=== PATIENT | female | born 1975 | race Caucasian/White ===

== ENCOUNTER → 2017-10-30 09:28 | Outpatient (CLI) | payer OTHER, SELFPAY ==
[2017-10-30 11:27] LABS: Vitamin D,25 Hydroxy 9.8 ng/mL (19.95-100.01)
[2017-10-30 18:23] LABS: AST(SGOT) 12 U/L (15-37); Alanine Aminotransfer ALT/SGPT 19 U/L (13-56); Albumin, Serum 3.8 g/dL (3.2-5.0); Alkaline Phosphatase 34 U/L (45-117); Anion Gap 8 (5-15); BUN 16 mg/dL (7-18); BUN/Creat Ratio 18.4 RATIO (10-20); Calcium,Total 8.6 mg/dL (8.5-10.1); Chloride 106 mmol/L (98-107); Creatinine, Serum 0.87 mg/dL (0.55-1.02); EST Glomerular Filtration Rate 76 mL/min (>60); Est Glom Filt Rate - Afr Amer 92 mL/min (>60); Globulin 3.7 g/dL (2.2-4.2); Glucose 94 mg/dL (74-106); Phosphorus 3.2 mg/dL (2.5-4.9); Potassium 3.7 mmol/L (3.5-5.1); Protein, Total 7.5 g/dL (6.4-8.2); Sodium Level 141 mmol/L (136-145)
[2017-10-30 18:30] LABS: PTHIN 58.3 pg/mL (18.4-80.1)
[2017-11-03 08:59] LABS: t-Transglutaminase IgA <2 U/mL (0-3)
[2017-11-03 17:15] LABS: HPV Reflexed? NOT INDICATED
== END ==
PROVIDERS: Visit Provider Obstetrics & Gynecology
DX: E55.9 Vitamin D deficiency, unspecified (principal); Z12.4 Encounter for screening for malignant neoplasm of cervix
CPT/HCPCS: 80053; 82306; 83516; 83970; 84100; 88175; G0145

== ENCOUNTER → 2017-12-21 08:12 | Outpatient (CLI) | payer OTHER, SELFPAY ==
--- NOTE | 2017-12-21 08:13 | HPBI_ITS ---
MAMMOGRAPHY - BILATERAL SCREENING 3-D VANESA SYNTHESIS REASON FOR EXAM: Female, 42 years old. Bilateral Screening 3-D tomosynthesis PERTINENT HISTORY: Aunt with breast cancer.. TECHNIQUE: 2-D mammograms and 3-D Vanesa synthesis of the breast (s) were performed. CAD was performed. COMPARISON: 03/06/2016 FINDINGS: The breast composition is heterogeneously dense that can obscure small breast masses. Scattered benign calcifications are seen. No dense spiculated masses or suspicious microcalcifications are identified. No architectural distortion is identified. There is no skin thickening or retraction. There has been no significant change since the prior study. HPBI/SCREENING MAMM (CAD), BILAT IMPRESSION: No mammographic signs of malignancy. Routine yearly mammograms recommended. ASSESSMENT CATEGORY: BIRADS Category 2: Benign. A letter regarding these results will be sent to the patient by the facility within 30 days. FOLLOW UP RECOMMENDATION: Yearly follow up mammogram recommended. (A) Approximately 10% of breast cancers are not detected by mammography. A normal mammogram should not delay biopsy of a clinically suspicious abnormality. Electronically Signed: Malik Singh MD at 10:01 EDT , Service support ,
== END ==
PROVIDERS: Family Provider Family Medicine; PCP Family Medicine; Visit Provider Obstetrics & Gynecology
DX: Z12.31 Encounter for screening mammogram for malignant neoplasm of breast (principal)
CPT/HCPCS: 77063; 77067

== ENCOUNTER → 2018-11-12 16:08 | Outpatient (CLI) | payer OTHER, SELFPAY ==
[2017-10-05 17:50] VITALS: BMI 24.1
[2018-11-12 20:23] LABS: Chlamydia Trachomatis by PCR Negative (Negative); Neisserai gonorrhoeae by PCR Negative (Negative); Probe Check PASS; Sample Adequacy Control PASS; Specimen Processing Control PASS
== END ==
PROVIDERS: Visit Provider Obstetrics & Gynecology
DX: Z11.3 Encounter for screening for infections with a predominantly sexual mode of transmission (principal)
CPT/HCPCS: 87491; 87591

== ENCOUNTER → 2018-12-17 13:50 | Outpatient (CLI) | payer OTHER, SELFPAY ==
[2018-12-17 15:42] LABS: Hematocrit 40.8 % (37-47); Hemoglobin 13.4 g/dl (12.0-15.0); Mean Corp Hgb Conc 32.8 g/gl (32-36); Mean Corpuscular Hgb 29.6 pg (27.0-32.0); Mean Corpuscular Volume 90.1 fL (81-99); Mean Platelet Vol. 10.7 fl (6.2-12.0); Platelet Count 305 K/mm3 (150-450); RBC Distribution Width CV 13.2 % (11.6-14.6); RBC Distribution Width SD 43.4 fl (35.1-43.9); Red Blood Count 4.53 M/mm3 (4.2-5.4); White Blood Count 8.9 K/mm3 (4.4-11.0)
[2018-12-17 15:50] LABS: Scan Indicated on CBC? Y/N NO
[2018-12-17 15:55] LABS: Thyroid Stim Hormone (TSH) 0.89 uIU/mL (0.358-3.74)
[2018-12-17 15:57] LABS: Vitamin D,25 Hydroxy 30.5 ng/mL (29.95-100.01)
== END ==
PROVIDERS: Visit Provider Obstetrics & Gynecology
DX: R53.83 Other fatigue (principal)
CPT/HCPCS: 82306; 84443; 85027

== ENCOUNTER → 2018-12-28 15:06 | Outpatient (CLI) | payer OTHER, SELFPAY ==
[2017-10-05 17:50] VITALS: BMI 24.1
== END ==
PROVIDERS: Visit Provider Family Medicine
DX: Z20.818 Contact with and (suspected) exposure to other bacterial communicable diseases (principal)
CPT/HCPCS: 87070; 87880

== ENCOUNTER → 2019-02-08 | Outpatient (CLI) | payer OTHER, SELFPAY ==
--- NOTE | 2019-02-08 12:16 | US_ITS ---
STUDY: THYROID ULTRASOUND REASON FOR EXAM: Female, 43 years old. Thyromegaly. Palpable cervical wall. TECHNIQUE: Ultrasound evaluation of the thyroid was performed with real-time and static celis-scale imaging. COMPARISON: None. FINDINGS: RIGHT LOBE: The right lobe of the thyroid gland measures 4.7 cm x 1.5 cm x 1.4 cm. There is a homogeneous echotexture. There are no demonstrated solid, cystic or complex lesions. LEFT LOBE: The left lobe of the thyroid gland measures 4.5 cm x 1.5 cm x 1.3 cm. There is a homogeneous echotexture. There are no demonstrated solid, cystic or complex lesions. ISTHMUS: The isthmus measures 3.0 mm. The palpable abnormality along the medial aspect of the left side of the neck corresponds to a 2 cm x 1.0 cm x 0.6 cm well-defined solid nodule. This may represent a small lymph node. US/Thyroid IMPRESSION: Normal ultrasound examination of the thyroid. Findings suggestive of a 2 cm x 1 cm x 0.6 cm lymph node corresponding to the palpable abnormality along the medial aspect of the left side of the neck. Electronically Signed: Cade Streeter, at 8:57 EDT , Service support ,
== END | disposition home or self-care (01) ==
LOC: US 12:13
PROVIDERS: Family Provider Family Medicine; PCP Family Medicine; Referring Provider Family Medicine; Visit Provider Family Medicine
DX: E04.9 Nontoxic goiter, unspecified (principal)
CPT/HCPCS: 76536

== ENCOUNTER → 2019-05-10 | Outpatient (CLI) | payer OTHER, SELFPAY ==
--- NOTE | 2019-05-10 17:21 | BI_ITS ---
MAMMOGRAPHY - BILATERAL SCREENING REASON FOR EXAM: Female, 43 years old. Routine annual screening examination. PERTINENT HISTORY: Aunt with breast cancer. TECHNIQUE: Digital bilateral breast vanesa (3D mammographic acquisition) in the CC and MLO projections. 2-D mediolateral oblique (MLO) and craniocaudad (CC) views of both breasts were obtained. CAD: Full Field Digital Mammography with Computer Added Detection was performed. COMPARISON: Comparison is made with prior study dated December 21, 2017 and March 06, 2016. FINDINGS: Breast Composition: The breasts are heterogeneously dense, which may obscure small masses. There are no dominant masses or suspicious calcifications. No other significant abnormalities are identified. There has been no significant change since the prior study. BI/SCREEN MAMM (CAD) W/VANESA BILAT IMPRESSION: Stable bilateral screening mammogram. Yearly follow-up mammogram recommended. (A) ASSESSMENT CATEGORY: BIRADS Category 1: Negative. A letter regarding these results will be sent to the patient by the facility within 30 days. Approximately 10% of breast cancers are not detected by mammography. A normal mammogram should not delay biopsy of a clinically suspicious abnormality. [id number] Electronically Signed: Cade Streeter, at 8:59 EDT , Service support ,
== END | disposition home or self-care (01) ==
LOC: OPBI 05-11 07:24
PROVIDERS: Family Provider Family Medicine; PCP Family Medicine; Referring Provider Obstetrics & Gynecology; Visit Provider Obstetrics & Gynecology
DX: Z12.31 Encounter for screening mammogram for malignant neoplasm of breast (principal)
CPT/HCPCS: 77063; 77067

== ENCOUNTER → 2019-05-31 | Outpatient (CLI) | payer OTHER, SELFPAY ==
[2017-10-05 17:50] VITALS: BMI 24.1
== END | disposition home or self-care (01) ==
PROVIDERS: Family Provider Family Medicine; PCP Family Medicine; Referring Provider Obstetrics & Gynecology; Visit Provider Obstetrics & Gynecology
DX: Z12.4 Encounter for screening for malignant neoplasm of cervix (principal)

== ENCOUNTER → 2019-06-21 15:41 | Outpatient (CLI) | payer OTHER, SELFPAY ==
[2017-10-05 17:50] VITALS: BMI 24.1
[2019-06-21 17:22] LABS: Hematocrit 42.1 % (37-47); Hemoglobin 13.7 g/dL (12.0-15.0); Mean Corp Hgb Conc 32.5 g/dL (32-36); Mean Corpuscular Hgb 29.5 pg (27.0-32.0); Mean Corpuscular Volume 90.5 fL (81-99); Mean Platelet Vol. 11.7 fl (6.2-12.0); Platelet Count 291 K/mm3 (150-450); RBC Distribution Width CV 12.8 % (11.6-14.6); RBC Distribution Width SD 42.5 fl (35.1-43.9); Red Blood Count 4.65 M/mm3 (4.2-5.4); White Blood Count 9.3 K/mm3 (4.4-11.0)
[2019-06-21 17:45] LABS: Free T3 2.6 pg/mL (2.18-3.98); Thyroid Stim Hormone (TSH) 0.95 uIU/mL (0.358-3.74)
== END ==
PROVIDERS: Visit Provider Obstetrics & Gynecology
DX: N93.9 Abnormal uterine and vaginal bleeding, unspecified (principal)
CPT/HCPCS: 36415; 84443; 84481; 85027

== ENCOUNTER 2019-09-22 11:59 | Day surgery (SDC) | payer OTHER, SELFPAY ==
[2019-06-30 09:20] VITALS: BMI 24.1
[2019-09-22 12:31] VITALS: PULSE 88; RESP 15; TEMP 37; O2SAT 100; BMI 25.4
[2019-09-22 12:40] LABS: Internal QC Validated? YES +Cl - CLEAR BKGD; Pregnancy, Urine Negative Negative
[2019-09-22] MEDS: Lactated Ringers 1,000 ML 75 ML IV (12:50)
--- NOTE | 2019-09-22 14:02 | PCM.HP.STD ---
Problem List (1) Subcutaneous mass Status: Acute History of Present Illness Date of Admission: 09/22/19 The patient is a 43 year old F who for 7 months have had a subcutaneous mass left anterior neck. On thyroid ultrasound it measures 2 x 1 x 0.6 cm.. There is been no drainage. No redness. She presents now for planned complete excision. She otherwise remains healthy. Past Medical History Medical History: Medical History (Last Updated 06/30/19 @ 09:09 by Noy Mak) Subcutaneous mass (Acute) R22.9 Swelling of gland (Acute) R59.9 Sinusitis (Acute) J32.9 Allergies iodine Allergy (Verified 09/22/19 12:26) Itching nitrofurantoin [From Macrobid] Allergy (Verified 09/22/19 12:26) Other nitrofurantoin macrocrystalline [From Macrobid] Allergy (Verified 09/22/19 12:26) Other shrimp Allergy (Verified 09/22/19 12:26) Unknown cashews Allergy (Uncoded 09/22/19 12:26) Unknown Home Medications: Ambulatory Orders Medication Instructions Recorded Fluticasone 0.05% [Flonase Nasal 1 spray NASAL DAILY 02/07/15 [place]] osbnhdmtry-qwtdsqvdkqwjk-uhaaorbs 1 cap PO Q4H PRN cap 06/30/19 50 mg-300 mg-40 mg capsule valacyclovir 500 mg tablet 500 mg PO DAILY PRN 06/30/19 Cetirizine HCl [Zyrtec] 10 mg PO DAILY 09/15/19 Surgical History: Surgical History (Last Updated 06/30/19 @ 09:10 by Noy Mak) history bilateral myringotomy with tubes history removal wisdom teeth Smoking Status: Former smoker Review of Systems Constitutional: Denies: Anorexia HEENT: Denies: Difficulty Swallowing Cardiovascular: Denies: Chest Pain Respiratory: Denies: Cough VTE Information - Inpt Only VTE Present on Admission: No - Physical Exam Vitals/I&O's: Vital Signs Temp Pulse Resp Pulse Ox 98.6 F 88 15 100 09/22/19 12:31 09/22/19 12:31 09/22/19 12:31 09/22/19 12:31 Oxygen Delivery Method Room Air Weight: 139 lb 5.314 oz Body Mass Index (BMI) 25.4 General: Alert, Oriented x3, Cooperative, No apparent distress HEENT: - - 2 cm nondescript subcutaneous rubbery mass left superior anterior neck Oral: Moist Mucosa Lungs: Clear to auscultation, Normal air movement Cardiovascular: Regular rate, Regular Rhythm Abdomen: Soft, Non Tender Extremities: No Calf Tenderness Laboratory Results 09/22/19 12:20: Urine Test Negative Current Medications Lactated Ringer's () 1,000 mls @ 75 mls/hr IV .[id number] TRACY Last Admin: 09/22/19 12:50 Dose: 75 mls/hr Documented by: Assessment/Plan All Active Problems (Last Updated 06/30/19 @ 09:09 by Noy Mak) Subcutaneous mass (Acute) Swelling of gland (Acute) Swelling of gland (Acute) Sinusitis (Acute) Left anterior neck subcutaneous nodule. Ultrasound suggested possible lymph node but on clinical exam seems more suspicious for a lipoma. I thought initially we would need to perform an ultrasound-guided wire localization. On review it is very vague on ultrasound. It is palpable. I believe that a direct incision over top with dissection will be appropriate. She is aware of the technique, benefit, risks, alternatives. She would like to have complete removal feasible. Ron Smyth M.D., F.A.C.S.
[2019-09-22 14:11] LABS: Bedside Glucose 95 mg/dL (70-110)
--- NOTE | 2019-09-22 14:25 | PCM.DC.GS ---
Discharge Diet: Light diet - advance as tolerated - if you have questions about your diet instructions, please talk to you doctor. Discharge Activity: May Not Drive - for 1 week or while taking narcotic pain medicine. May shower in (days): 1 Lifting Restrictions: 10 pounds Call your doctor if your incision/area has: Continuous Slow Oozing, Sudden Increased Bleeding, Increased Pain/ Swelling, Increased Redness, Foul Smelling Discharge Call your doctor if you observe: Fever of 101 or Higher Suture Line Care: Avoid Pulling/Pushing, Avoid Pinching/Bending Additional Dressing/Incision Instructions:: Change or remove dressing in 3 days. Leave steri-strips in place for 1 week. Allergies/Adverse Reactions: Allergies iodine Allergy (Verified 09/22/19 12:26) Itching nitrofurantoin [From Macrobid] Allergy (Verified 09/22/19 12:26) Other nitrofurantoin macrocrystalline [From Macrobid] Allergy (Verified 09/22/19 12:26) Other shrimp Allergy (Verified 09/22/19 12:26) Unknown cashews Allergy (Uncoded 09/22/19 12:26) Unknown Medications to take at Discharge Fluticasone 0.05% [Flonase Nasal [place]] 1 spray NASAL DAILY 02/07/15 xfncjhzbcm-wbkdplplpiqda-ovuuaqiz 50 mg-300 mg-40 mg capsule 1 cap PO Q4H PRN cap 06/30/19 valacyclovir 500 mg tablet 500 mg PO DAILY PRN 06/30/19 Cetirizine HCl [Zyrtec] 10 mg PO DAILY 09/15/19 Primary Care Physician: Lakeisha Carter MD [Primary Care Provider] - Test Results: Test results from this visit will be discussed in further detail at your follow-up appointment, if applicable. Please Follow Up With: Ron Smyth MD - [phone] When: Call to make an appointment to be seen in about 10 days.
--- NOTE | 2019-09-22 14:30 | LIP_PTH ---
PATIENT: TRACY CONTI LOC: [facility] [place] U#:[id number] AGE/SX: 43/F ROOM: RE09/22/[address]: Dr. Ron Smyth MD : 1975 BED: DIS: 09/22/2019 SPEC #: [id number] RECD: 09/22/19 15:38 STATUS: ASHKAN MARGIE #: [id number] JUAN M: 09/22/19 14:[address]: Ron Smyth DEPT: SURGICAL PATHOLOGY RECD BY: Denise Flynn ENTERED: 09/23/19 09:18 SP TYPE: LIPOMA OTHR DR: Dr. Lakeisha Carter MD Tissues: Soft tissues, NOS Procedures: Surgery Specimen Level III HEADER OPERATION: Neck mass with excisional biopsy PRE-OP DIAGNOSIS: Subfascial lipoma TISSUE SUBMITTED: Subfascial lipoma MICROSCOPIC DIAGNOSIS Soft tissue of neck, excision: Mature adipose tissue consistent with lipoma. AM:felicia 09/26/19 MICROSCOPIC DESCRIPTION Slides are reviewed. GROSS DESCRIPTION Received in fixative is one container labeled with the patient's name and designated subfascial lipoma. The specimen consists of an irregular fragment of yellow fatty tissue measuring 2.5 x 1.5 x 1 cm. The cut surface is yellow-salgado and free of areas of hemorrhage, cyst formation or necrosis. The specimen is bisected and totally submitted in one cassette. / AM:felicia 09/23/19 TC:1 CPT: 00954
[2019-09-22] MEDS: Bupivacaine Mpf 0.5% 30 ML VIAL (15:06)
--- NOTE | 2019-09-22 15:07 | PCM.OPRPT ---
Problem List (1) Subcutaneous mass Status: Acute Report of Operation Date of Procedure: 09/22/19 Pre-Operative Diagnosis: Subcutaneous mass left superior anterior neck Post-Operative Diagnosis: Subfascial mass left superior anterior neck Surgery/Procedure Performed:: Excision of subfascial mass of left superior anterior neck Description of Surgical Findings:: Timeout and informed consent was obtained. 43-year-old female was taken to the operating room underwent general anesthesia the left anterior superior neck was sterilely prepped and draped. A transverse incision was made directly over the palpable mass sharp dissection was carried down through the platysma and the fibrofatty mass was encountered. It was carefully and tediously circumferentially dissected free. Although there was not a clean capsule I felt that I got complete excision. Hemostasis was obtained with electrocautery and interrupted 5-0 chromic. The subcutaneous and platysmal layer was approximated with interrupted 5-0 chromic. Subdermal edges of additionally approximated with interrupted 5-0 chromic. Skin edges approximated with simple sutures of 6-0 nylon. The mass itself measured a maximum of 2 cm in diameter. Steri-Strip Telfa OpSite dressing applied. The earnestine-incisional area was anesthetized with 1 cc of 0.5% Marcaine. Sponge and instrument and needle counts were reported to the surgeon to be correct Specimens subfascial fibrofatty mass. Drains none. Blood loss minimal Ron Smyth M.D., F.A.C.S. Clean procedure no antibiotics required Type of Anesthesia:: General Anesthesiologist: Roshan Edgar
[2019-09-22 15:16] VITALS: BP 106/80; BP 132/89; PULSE 91; RESP 16; TEMP 36.7; O2SAT 100
[2019-09-22 15:29] VITALS: BP 120/80; BP 132/89; PULSE 86; RESP 16; O2SAT 100
[2019-09-22 15:45] VITALS: BP 130/85; BP 132/89; PULSE 87; RESP 16; TEMP 36.8; O2SAT 100
[2019-09-22 16:39] VITALS: BP 132/89
[2019-09-22 16:52] VITALS: BP 122/82; BP 132/89; PULSE 88; RESP 16; TEMP 36.8; O2SAT 97
== END 2019-09-22 17:00 | disposition home or self-care (01) ==
LOC: SDC 11:59 → AC 12:01
PROVIDERS: Anesthesiology; Family Provider Family Medicine; PCP Family Medicine; Referring Provider Surgery; Visit Provider Surgery
PROC: (CPT 21556; principal; 2019-09-22 14:15)
DX: D17.0 Benign lipomatous neoplasm of skin and subcutaneous tissue of head, face and neck (principal); E78.00 Pure hypercholesterolemia, unspecified; Z79.899 Other long term (current) drug therapy; Z88.1 Allergy status to other antibiotic agents; Z87.891 Personal history of nicotine dependence
CPT/HCPCS: 21556; 81025; 82962; 88304; J7120; J2405

== ENCOUNTER 2019-10-27 17:00 | Outpatient (RCR) | payer OTHER, SELFPAY ==
[2019-09-30 09:07] VITALS: BMI 25.4
--- NOTE | 2019-10-06 18:16 | HP.PTEVAL_ITS ---
Patient's Visit Information TRACY CONTI is a 43 year old F referred to Physical Therapy by Lakeisha Carter MD with a diagnosis of L knee and hip pain. Date of Evaluation: 10/06/19 Physical Therapist: Michael Browne PT, ATC - Visit Plan Frequency: 2-3x /Week Duration: 4 Weeks Plan: L LE stretching and strengthening, core stab ex's, balance and proprio, bike, and HEP - Subjective Findings: Pt reports she has had L knee pain for 7-8 mos. Pt reports her pain had an insidious onset in nature. Pt reports she was sitting in a chair when she attempted to stand and her L knee gave out on her. Pt reports she has no popping or locking up in her knee, but it gives out on her sometimes. Pt reports the medial aspect of her L knee is where all of her pain is at. Pt reports difficulty with sleep on occasion secondary to pain. Pt reports occasional L foot numbness secondary to pain. Pt also reports one week ago, she was squatting and stood up. Pt then rotated to the L when she experienced severe pain in her L hip. Pt reports she was unable to walk at that time secondary to pain. Pt reports her L hip has been sore ever since. 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 - Pain L knee Pain Intensity (Out of 10): 0 Pain Intensity Range: 9 L hip Pain Intensity (Out of 10): 1 Pain Intensity Range: 10 - Objective Neuro: B LE sensation is WNL to light touch. B achilles reflex= 2/3. Palpation: No abnormalities this date. Crepitus with AROM R knee. Girth at joint line: L kjee 33 cm, R knee 32 cm. MMT: L hip add and flex 4-/5 and painful with all testing. All other measurements 5/5 throughout. ROM: B LE WNL. Special tests: Minor pain with HAYDEN. - Goals Goal 1:: Decrease L hip and knee pain x 50% to aid with sleep Goal Time Frame: 4-6 Weeks Goal 2:: Increase L LE strength x 1 grade to aid with IADL's Goal Time Frame: 4-6 Weeks Goal 3:: I with HEP Goal Time Frame: 4-6 Weeks - Rehabilitation Potential Physical Therapy Diagnosis: Pt has L hip and knee pain and difficulty with IADL's secondary to pain Rehabilitation Potential: Good - Anticipated Interventions Patient/Client Instruction: Educate patient on: Condition, Plan of Care For the Purpose of:: To improve self management Therapeutic Exercise to Include: Strength training, Endurance training, Balance training, Flexibilty training, Dynamic Lumbar Stabilization For the Purpose of:: To decrease pain, To improve muscle performance and motor function Cryotherapy (ice pack, ice massage): Yes For the Purpose of:: To decrease pain Thank you for the opportunity to evaluate your patient. For Medicare and Medicare HMO plans, please review the plan of care and approve it. It will need to be FAXED BACK to us at [phone] for Medicare purposes. For Medicare only, by signing this I certify the plan of care. Please let me know if there are questions or concerns regarding this plan of care. Physician Signature: Date:
--- NOTE | 2019-10-27 17:55 | HP.PTREVAL ---
Lakeisha Carter MD, It has been my pleasure to treat TRACY CONTI over the last 7 visits for L knee and hip pain. Please see the progress note below for an update on the physical therapy plan of care! Subjective: Pt reports no improvements with L knee at this time. Objective/Function: L knee pain 4/10, hip pain 0/10. L LE MMT: 5/5 throughout. I with HEP. Pt has progressed well in all aspects with exception to L kniee pain which is unchanged Plan Plan: Discontinue, RTD Goals Goal 1:: Decrease L hip and knee pain x 50% to aid with sleep Goal Time Frame: 4-6 Weeks Goal Progress: Progressing Goal 2:: Increase L LE strength x 1 grade to aid with IADL's Goal Time Frame: 4-6 Weeks Goal Progress: Goal Met Goal 3:: I with HEP Goal Time Frame: 4-6 Weeks Goal Progress: Goal Met Anticipated Interventions Patient/Client Instruction: Educate patient on: Condition, Plan of Care For the Purpose of:: To improve self management Therapeutic Exercise to Include: Strength training, Endurance training, Balance training, Flexibilty training, Dynamic Lumbar Stabilization For the Purpose of:: To decrease pain, To improve muscle performance and motor function Cryotherapy (ice pack, ice massage): Yes For the Purpose of:: To decrease pain Please do not hesitate to contact me at [phone] by phone or if you have questions or concerns regarding this new plan of care! Sincerely, Michael Browne, PT, ATC
--- NOTE | 2019-12-14 12:23 | HP.PTDCSUM ---
It has been my pleasure to treat TRACY CONTI referred by Lakeisha Carter MD, with the diagnosis of L knee and hip pain for a total of 7 visit(s). Discharge Date: Please see the following information for a summary of their discharge status. Subjective: Pt reports no improvements with L knee at this time. L knee Pain Intensity (Out of 10): 4 L hip Pain Intensity (Out of 10): 0 Objective/Function: L knee pain 4/10, hip pain 0/10. L LE MMT: 5/5 throughout. I with HEP. Pt has progressed well in all aspects with exception to L kniee pain which is unchanged Goal 1:: Decrease L hip and knee pain x 50% to aid with sleep Goal Progress: Progressing Goal 2:: Increase L LE strength x 1 grade to aid with IADL's Goal Progress: Goal Met Goal 3:: I with HEP Goal Progress: Goal Met Plan: Discontinue, RTD If there are questions or concerns regarding this patient's physical therapy, please feel free to call me at [phone]. Thank you for the referral of this patient. Sincerely, Michael Browne, PT, ATC
== END 2019-10-27 19:00 | disposition home or self-care (01) ==
LOC: PT 17:00
PROVIDERS: Family Provider Family Medicine; PCP Family Medicine; Visit Provider Family Medicine
DX: M25.562 Pain in left knee (principal); S76.102D Unspecified injury of left quadriceps muscle, fascia and tendon, subsequent encounter
CPT/HCPCS: 97110; 97161; 97164

== ENCOUNTER → 2019-11-24 14:49 | Outpatient (CLI) | payer OTHER, SELFPAY ==
[2019-09-30 09:07] VITALS: BMI 25.4
--- NOTE | 2019-11-24 14:51 | MRI_ITS ---
STUDY: MRI LEFT KNEE REASON FOR EXAM: Female, 43 years old. Knee pain TECHNIQUE: Standardized fat and water weighted pulse sequences were obtained in all 3 orthogonal planes. COMPARISON: None. FINDINGS: Normal medial meniscus. Normal hyaline cartilage of the medial femorotibial compartment. Normal medial femoral condyle and tibial plateau. Normal medial collateral ligamentous complex (MCL). Normal distal semimembranosus, gracilis and semitendinosus tendons. Normal lateral meniscus. Normal hyaline cartilage of the lateral femorotibial compartment. Normal lateral femoral condyle and tibial plateau. Normal proximal tibiofibular articulation. Normal lateral collateral (fibular) ligament. Normal popliteus tendon. Normal biceps femoris tendon. Normal anterior cruciate ligament (ACL). Normal posterior cruciate ligament (PCL). Normal congruent patellofemoral articulation. Normal hyaline cartilage of the patellofemoral compartment. Normal medial and lateral patellar retinaculum. Normal quadriceps tendon. Normal patellar tendon. Normal Hoffa''s fat pad. There is no joint effusion. The soft tissues are unremarkable. The otherwise visualized osseous structures are unremarkable. MRI/Lower Ext Joint Only (Routine) IMPRESSION: Normal MRI of the knee. Electronically Signed: Ron Roland, at 17:35 EST Tel , Service support ,
== END ==
PROVIDERS: PCP Family Medicine; Referring Provider Family Medicine; Visit Provider Family Medicine
DX: M25.562 Pain in left knee (principal)
CPT/HCPCS: 73721

== ENCOUNTER → 2020-06-20 10:22 | Outpatient (CLI) | payer OTHER, SELFPAY ==
[2020-02-22 08:56] VITALS: BMI 25.4
[2020-06-20 13:30] LABS: Vitamin D,25 Hydroxy 26.9 ng/mL
== END ==
PROVIDERS: PCP Family Medicine; Visit Provider Family Medicine
DX: E55.9 Vitamin D deficiency, unspecified (principal)
CPT/HCPCS: 36415; 82306

== ENCOUNTER → 2020-10-16 10:23 | Outpatient (CLI) | payer OTHER, SELFPAY ==
[2020-02-22 08:56] VITALS: BMI 25.4
[2020-10-16 12:46] LABS: Hemoglobin A1c 5.3 % (3.8-5.6)
[2020-10-16 12:50] LABS: T4 Free Direct 0.95 ng/dL (0.76-1.46); Thyroid Stim Hormone (TSH) 1.18 uIU/mL (0.358-3.74)
[2020-10-16 13:25] LABS: Vitamin D,25 Hydroxy 19.1 ng/mL
[2020-10-19 20:15] LABS: HPV Reflexed? NOT INDICATED
== END ==
PROVIDERS: PCP Family Medicine; Visit Provider Student in an Organized Health Care Education/Training Program
DX: E55.9 Vitamin D deficiency, unspecified (principal); Z13.29 Encounter for screening for other suspected endocrine disorder; Z13.1 Encounter for screening for diabetes mellitus; Z12.4 Encounter for screening for malignant neoplasm of cervix
CPT/HCPCS: 36415; 82306; 83036; 84439; 84443; 88175; G0145

== ENCOUNTER → 2020-12-04 18:14 | Outpatient (CLI) | payer OTHER, SELFPAY ==
[2020-02-22 08:56] VITALS: BMI 25.4
--- NOTE | 2020-12-04 18:16 | US_ITS ---
STUDY: SUPERFICIAL ULTRASOUND - LEFT KNEE. REASON FOR EXAM: Female, 45 years old. LEFT LEG MASS TECHNIQUE: A superficial ultrasound was performed with real-time and static celis-scale imaging. COMPARISON: None. FINDINGS: The region of clinical concern which is the level of the left knee there is focal area of shadowing artifact of indeterminate etiology. There is no evidence of fluid collection, mass or abscess. US/Ext Non Vasc Limited/Soft Tiss IMPRESSION: No free fluid, fluid collection or mass in the region of clinical concern. Likely artifact as described above of indeterminate clinical significance. This may be related to minimal calcification, foreign body debris or nonspecific imaging artifact. Electronically Signed: Lexii Coffman MD at 0:42 EST , Service support ,
== END ==
PROVIDERS: PCP Family Medicine; Referring Provider Family Medicine; Visit Provider Family Medicine
DX: R22.42 Localized swelling, mass and lump, left lower limb (principal)
CPT/HCPCS: 76882

== ENCOUNTER → 2021-01-02 | Outpatient (CLI) | payer OTHER, SELFPAY ==
[2020-02-22 08:56] VITALS: BMI 25.4
== END | disposition home or self-care (01) ==
LOC: LABSPEC 15:59
PROVIDERS: PCP Family Medicine; Visit Provider Obstetrics & Gynecology
DX: R31.9 Hematuria, unspecified (principal)
CPT/HCPCS: 87086

== ENCOUNTER → 2021-05-30 06:48 | Outpatient (CLI) | payer OTHER, SELFPAY ==
[2020-02-22 08:56] VITALS: BMI 25.4
--- NOTE | 2021-05-30 06:41 | BI_ITS ---
MAMMOGRAPHY - BILATERAL SCREENING 3-D TOMOSYNTHESIS REASON FOR EXAM: Female, 45 years old. SCREENING PERTINENT HISTORY: No significant family history. TECHNIQUE: 2-D mammograms and 3-D Tomosynthesis of the breast (s) were performed. CAD was performed. COMPARISON: 05/10/2019 FINDINGS: The breast composition is heterogeneously dense that can obscure small breast masses. Scattered benign calcifications are seen. No dominant mass in the right breast. 1 cm oval obscured mass in the lower inner quadrant of the left breast at mid depth and focal compression views are recommended for further evaluation. No suspicious calcifications.. No architectural distortion is identified. There is no skin thickening or retraction. There has been no significant change since the prior study. BI/SCRN MAMM (CAD)W/VANESA BILAT IMPRESSION: 1 cm oval obscured mass in the lower inner quadrant of the left breast at mid depth and focal compression views are recommended for further evaluation. ASSESSMENT CATEGORY: BIRADS Category 0: Incomplete. Need additional imaging evaluation as above. A letter regarding these results will be sent to the patient by the facility within 30 days. FOLLOW UP RECOMMENDATION: Additional imaging recommended as above. (E) Approximately 10% of breast cancers are not detected by mammography. A normal mammogram should not delay biopsy of a clinically suspicious abnormality. Electronically Signed: Jesús Gutiérrez MD at 9:16 EDT Tel , Service support ,
== END ==
PROVIDERS: PCP Family Medicine; Referring Provider Student in an Organized Health Care Education/Training Program; Visit Provider Student in an Organized Health Care Education/Training Program
DX: Z12.31 Encounter for screening mammogram for malignant neoplasm of breast (principal)
CPT/HCPCS: 77063; 77067

== ENCOUNTER → 2021-06-07 08:39 | Outpatient (CLI) | payer OTHER, SELFPAY ==
--- NOTE | 2021-06-07 08:59 | BI_ITS ---
MAMMOGRAPHY - UNILATERAL DIAGNOSTIC: LEFT BREAST REASON FOR EXAM: Female, 45 years old. Abnormal screening mammogram. PERTINENT HISTORY: Non-contributory. TECHNIQUE: Compression spot views of the left breast in the mediolateral oblique and craniocaudad views were obtained. CAD: Full Field Digital Mammography with Computer Added Detection was performed. COMPARISON: Comparison is made with prior examination of 05/30/2021. FINDINGS: Breast Composition: The breasts are heterogeneously dense, which may obscure small masses. Persistent 1.2 cm nodular density in the inferior slightly medial aspect of the left breast. Correlation with ultrasound is recommended. No other significant abnormalities are identified. BI/DIAG MAMM W/CAD, UNILAT IMPRESSION: Persistent 1.2 cm nodular density in the inferior slightly medial aspect of the left breast as described. Correlation with ultrasound is recommended. ASSESSMENT CATEGORY: BIRADS Category 0: Incomplete. Need additional imaging evaluation. A letter regarding these results will be sent to the patient by the facility within 30 days. Approximately 10% of breast cancers are not detected by mammography. A normal mammogram should not delay biopsy of a clinically suspicious abnormality. Electronically Signed: Cade Streeter MD at 10:07 EDT , Service support ,
--- NOTE | 2021-06-07 08:59 | US_ITS ---
STUDY: ULTRASOUND BREAST - LEFT REASON FOR EXAM: Female, 45 years old. Abnormal screening mammogram. TECHNIQUE: Axial and longitudinal images of the LEFT breast were performed with a high resolution ultrasound transducer. # OF IMAGES: 13 COMPARISON: Comparison is made with prior mammogram done earlier in the morning. FINDINGS: LEFT Breast: The mammographic abnormality corresponds to a 1.1 cm x 0.8 cm x 1 cm cyst at the 8 o''clock position of the breast at 2 cm from the nipple. US/Breast Limited Unilateral IMPRESSION: The mammographic abnormality corresponds to a 1.1 cm x 0.8 cm x 1 cm cyst at the 8 o''clock position of the breast at 2 cm from the nipple. ASSESSMENT CATEGORY: BIRADS Category 2: Benign. A letter regarding these results will be sent to the patient by the facility within 30 days. Electronically Signed: Cade Streeter MD at 10:09 EDT , Service support ,
== END ==
PROVIDERS: PCP Family Medicine; Referring Provider Student in an Organized Health Care Education/Training Program; Visit Provider Student in an Organized Health Care Education/Training Program
DX: N63.20 Unspecified lump in the left breast, unspecified quadrant (principal)
CPT/HCPCS: 76642; 77065

== ENCOUNTER 2021-11-06 15:05 | Emergency (ER) | payer OTHER, SELFPAY ==
[2021-11-06 15:06] VITALS: BP 139/96; PULSE 95; RESP 16; TEMP 36.6; O2SAT 97; BMI 25.6
--- NOTE | 2021-11-06 15:21 | EX.ED.DYSGE1 ---
HPI History of Present Illness Chief Complaint: Occup Expose Informant: patient Onset/Context/Timing Onset: Today Narrative Narrative: Patient was working on lab refilling buffered formalin. The material spilled and filled her left shoe. She was exposed on her left foot and ankle to buffered formalin. She irrigated her skin for 10 minutes prior to coming to the emergency room. She has no symptoms at this time. [facility] Medical History History of frequent headaches History of high cholesterol History of hypoglycemia Sinusitis Subcutaneous mass Swelling of gland Home Medications bupropion HCl 150 mg tablet,12 hr sustained-release 150 mg PO DAILY 01/14/21 [History Last Taken Unknown] cholecalciferol (vitamin D3) 50 mcg (2,000 unit) tablet 50 mcg PO DAILY 01/14/21 [History Last Taken Unknown] magnesium hydroxide 400 mg (170 mg magnesium) chewable tablet mg PO DAILY tablet 01/14/21 [History Last Taken Unknown] Allergy/AdvReac Type Severity Reaction Status Date / Time iodine Allergy Itching Verified 11/06/21 15:09 nitrofurantoin Allergy Other Verified 11/06/21 15:09 [From Macrobid] nitrofurantoin Allergy Other Verified 11/06/21 15:09 macrocrystalline [From Macrobid] shrimp Allergy Unknown Verified 11/06/21 15:09 cashews Allergy Unknown Uncoded 11/06/21 15:09 Family History Brother Asthma Mother Arthritis High cholesterol Father High cholesterol Hypertension Grandmother Hypertension Ovarian cancer Surgical History history bilateral myringotomy with tubes history of lipoma removal history removal wisdom teeth Social History Smoking Status: Unknown if ever smoked alcohol intake: current alcohol intake frequency: a few times a month Alcohol type: beer substance use type: does not use what type of physical activity do you participate in: yoga and other details: Pilates frequency: 3-4 times per week ROS ROS ED Constitutional Constitutional ED: Denies chills or fever(s) Eyes Eyes: Denies change in vision ENT ENT ED: Denies sore throat Cardiovascular Cardiovascular: Denies chest pain Respiratory/Chest Respiratory/Chest: Denies cough or dyspnea Gastrointestinal Gastrointestinal: Denies abdominal pain, nausea or vomiting Musculoskeletal Musculoskeletal: Denies back pain Integumentary Denies Abrasions or rash Neurologic Neurologic: Denies headache(s), paresthesias or weakness Allergic/Immunologic Allergic/Immunologic ED: Denies urticaria EXAM Physical Exam Const Vital Signs: 11/06/21 15:06 Temperature 97.8 F Temperature Source Temporal Pulse Rate 95 Respiratory Rate 16 Blood Pressure 139/96 H Blood Pressure Mean 110 Pulse Ox 97 Oxygen Delivery Method Room Air Positive well nourished and well developed General Appearance ED: well developed HEENT Reports moist mucous membranes Eyes PERRL and EOMs intact bilaterally Neck supple Chest Wall inspection of chest normal and palpation of chest normal Resp normal respiratory effort and clear to auscultation bilaterally Cardio regular rate and regular rhythm GI non-tender Palpation: soft Extremity Extremity Narrative: No skin changes noted to the left lower extremity. Strong distal pulses with full range of motion. Neuro oriented x3 Sensorium / Orientation: alert Psych mental status grossly normal Skin no rashes or lesions noted MDM [facility] Treatment and Re-Evaluation Comments:: Recommendations are to flush the skin for 20 minutes after exposure to buffered formalin. She has already irrigated her skin for 10 minutes. She will irrigate her skin for another 10 minutes and be discharged. Follow-up with employee [facility] in 3 to 5 days. Discharge Plan Triage Chief Complaint: Occup Expose ED Provider: Tigist Perez Dx/Rx/DC Orders Clinical Impression: Chemical exposure Instructions: ED Skin Exposure, Chemical Prescriptions: No Action bupropion HCl [Wellbutrin SR] 150 mg tablet sustained-release 12 hr 150 mg PO DAILY RF: 0 cholecalciferol (vitamin D3) 50 mcg (2,000 unit) tablet 50 mcg PO DAILY RF: 0 magnesium hydroxide 400 mg (170 mg magnesium) tablet,chewable PO DAILY RF: 0 Primary Care Provider: Lakeisha Carter Referrals: Lakeisha Carter MD [Primary Care Provider] - Health,Employee [NON-STAFF] - 3-5 Days Disposition Disposition: Home, Self Care Discharge Date/Time: 11/06/21 15:59
--- NOTE | 2021-11-06 15:54 | ED.RN ---
rinsed left foot/ankle with water for 10 min in decontamination room.
== END 2021-11-06 15:59 | disposition home or self-care (01) ==
PROVIDERS: Emergency Provider Emergency Medicine; PCP Family Medicine; Visit Provider Emergency Medicine
DX: Z77.098 Contact with and (suspected) exposure to other hazardous, chiefly nonmedicinal, chemicals (principal)
CPT/HCPCS: 99283

== ENCOUNTER 2021-12-26 09:31 | Outpatient (CLI) | payer OTHER, SELFPAY ==
[2021-12-27 09:42] LABS: Cancer Antigen 125 15.5 U/mL (0.0-38.1)
[2022-01-01 12:30] LABS: HPV APTIMA, High Risk Negative (Negative)
== END 2021-12-26 23:59 | disposition home or self-care (01) ==
PROVIDERS: PCP Family Medicine; Visit Provider Student in an Organized Health Care Education/Training Program
DX: N83.291 Other ovarian cyst, right side (principal); Z12.4 Encounter for screening for malignant neoplasm of cervix
CPT/HCPCS: 36415; 86304; 87624; 88175; G0145

== ENCOUNTER → 2022-02-01 | Outpatient (CLI) | payer OTHER, SELFPAY ==
--- NOTE | 2022-02-01 12:25 | RAD_ITS ---
STUDY: X-RAY - RIGHT KNEE REASON FOR EXAM: Female, 46 years old. fell on distal anterior knee/proximal anterior leg TECHNIQUE: 4 view(s) of the knee. COMPARISON: None. FINDINGS: Normal visualized distal femur. Normal visualized proximal tibia and fibula. Normal proximal tibiofibular articulation. Normal medial femorotibial compartment. Normal lateral femorotibial compartment. Normal patellofemoral articulation. The soft tissue structures are unremarkable. RAD/Knee 4 or More Views IMPRESSION: Normal x-ray examination of the knee. Electronically Signed: Jesús Gutiérrez MD at 13:11 EDT ,
== END | disposition home or self-care (01) ==
PROVIDERS: PCP Family Medicine; Referring Provider Nurse Practitioner Family; Visit Provider Nurse Practitioner Family
DX: M25.561 Pain in right knee (principal); M79.604 Pain in right leg
CPT/HCPCS: 73564

== ENCOUNTER → 2022-06-27 | Outpatient (CLI) | payer OTHER, SELFPAY ==
[2022-06-27 10:49] LABS: Cholesterol 296 mg/dL (200); High Density Lipoprotein 55 mg/dL; Triglycerides 178 mg/dL; Very Low Density Lipoprotein 36 mg/dL (5-40)
[2022-06-27 10:55] LABS: Hemoglobin A1c 5.4 % (3.8-5.6)
== END | disposition home or self-care (01) ==
LOC: WOBLAB 10:05
PROVIDERS: PCP Family Medicine; Visit Provider Student in an Organized Health Care Education/Training Program
DX: Z01.89 Encounter for other specified special examinations (principal)
CPT/HCPCS: 36415; 80061; 83036

== ENCOUNTER → 2023-02-06 | Outpatient (CLI) | payer OTHER, SELFPAY ==
--- NOTE | 2023-02-06 14:31 | BI_ITS ---
MAMMOGRAPHY - BILATERAL DIAGNOSTIC REASON FOR EXAM: Female, 47 years old. Left axillary lump. PERTINENT HISTORY: Aunt with breast cancer. TECHNIQUE: Digital bilateral breast remington (3D mammographic acquisition) in the CC and MLO projections. 2-D mediolateral oblique (MLO) and craniocaudad (CC) views of both breasts were obtained. CAD: Full Field Digital Mammography with Computer Added Detection was performed. COMPARISON: Comparison is made with prior study May 30, 2021 and June 07, 2021. FINDINGS: Breast Composition: The breasts are heterogeneously dense, which may obscure small masses. There are no dominant masses or suspicious calcifications. Previously seen nodular density in the inferior medial aspect of the left breast has decreased in size. It presently measures 5.6 mm. No other significant abnormalities are identified. BI/DIAG MAMM W/CAD, BILAT IMPRESSION: Stable bilateral diagnostic mammogram. With the patient''s history of a left axillary lump, correlation with ultrasound is recommended. ASSESSMENT CATEGORY: BIRADS Category 0: Incomplete. Need additional imaging evaluation. A letter regarding these results will be sent to the patient by the facility within 30 days. Approximately 10% of breast cancers are not detected by mammography. A normal mammogram should not delay biopsy of a clinically suspicious abnormality. Electronically Signed: Cade Streeter MD at 15:36 EDT ,
--- NOTE | 2023-02-06 14:32 | US_ITS ---
STUDY: ULTRASOUND BREAST - LEFT REASON FOR EXAM: Female, 47 years old. Pain in the left breast. TECHNIQUE: Axial and longitudinal images of the LEFT breast were performed with a high resolution ultrasound transducer. # OF IMAGES: 31 COMPARISON: Comparison is made with prior mammogram dated February 06, 2023 and prior ultrasound of the left breast dated June 07, 2021. FINDINGS: LEFT Breast: In the upper outer quadrant of the left breast was examined with ultrasound. Small subcentimeter cysts are seen. The largest measures 8 mm x 6 mm x 7 mm. US/Breast Limited Unilateral IMPRESSION: Subcentimeter cysts are seen in the upper outer quadrant of the left breast. Routine annual mammographic follow-up is recommended. ASSESSMENT CATEGORY: BIRADS Category 2: Benign. A letter regarding these results will be sent to the patient by the facility within 30 days. Electronically Signed: Cade Streeter MD at 12:24 EDT ,
== END | disposition home or self-care (01) ==
LOC: OPBI 14:27
PROVIDERS: PCP Family Medicine; Referring Provider Nurse Practitioner Women's Health; Visit Provider Nurse Practitioner Women's Health
DX: N64.4 Mastodynia (principal)
CPT/HCPCS: 76642; 77062; 77066; G0279

== ENCOUNTER → 2023-06-23 | Outpatient (CLI) | payer OTHER, SELFPAY | END | disposition home or self-care (01) | PROVIDERS: PCP Family Medicine; Visit Provider Family Medicine | DX: Z20.828 Contact with and (suspected) exposure to other viral communicable diseases (principal) | CPT/HCPCS: 87635 ==

== ENCOUNTER → 2023-10-27 | Outpatient (CLI) | payer OTHER, SELFPAY ==
[2023-10-27 12:51] LABS: Anion Gap 4 (5-15); BUN 12 mg/dL (7-18); BUN/Creat Ratio 15.4 RATIO (10-20); Calcium,Total 8.5 mg/dL (8.5-10.1); Chloride 103 mmol/L (98-107); Cholesterol 246 mg/dL (200); Creatinine, Serum 0.78 mg/dL (0.55-1.02); EST Glomerular Filtration Rate 84 mL/min (>60); Est Glom Filt Rate - Afr Amer 102 mL/min (>60); Glucose 93 mg/dL (74-106); High Density Lipoprotein 42 mg/dL; Potassium 3.6 mmol/L (3.5-5.1); Sodium Level 133 mmol/L (136-145); Triglycerides 228 mg/dL; Very Low Density Lipoprotein 46 mg/dL (5-40)
== END | disposition home or self-care (01) ==
LOC: BFHLAB 10:29
PROVIDERS: PCP Family Medicine; Visit Provider Family Medicine
DX: Z00.00 Encounter for general adult medical examination without abnormal findings (principal); E55.9 Vitamin D deficiency, unspecified
CPT/HCPCS: 36415; 80048; 80061; 82306

== ENCOUNTER → 2024-05-26 | Outpatient (CLI) | payer OTHER, SELFPAY ==
--- NOTE | 2024-05-26 12:37 | RAD_ITS ---
STUDY: X-RAY - RIGHT SHOULDER REASON FOR EXAM: Female, 48 years old. TENDERNESS OF RIGHT SHOULDER TECHNIQUE: 4 view(s) of the shoulder. COMPARISON: None. FINDINGS: Normal glenohumeral articulation. Normal acromioclavicular joint. Normal acromion. Normal humeral head and visualized proximal humerus. The soft tissue structures are unremarkable. There is no demonstrated fracture. Normal visualized pulmonary apex. RAD/Shoulder min 2 Views IMPRESSION: Normal x-ray examination of the shoulder. Electronically Signed: Royce Knowles MD at 10:07 EDT ,
== END | disposition home or self-care (01) ==
PROVIDERS: PCP Family Medicine; Referring Provider Family Medicine; Visit Provider Family Medicine
DX: M75.80 Other shoulder lesions, unspecified shoulder (principal)
CPT/HCPCS: 73030

== ENCOUNTER 2024-07-13 11:00 | Outpatient (RCR) | payer OTHER, SELFPAY ==
--- NOTE | 2024-06-07 13:21 | HP.PTEVAL_ITS ---
Patient's Visit Information Visit Information Visit Information: TRACY CONTI is a 48 year old F referred to Physical Therapy by Dr. Lakeisha Carter MD with a diagnosis of R shoulder lesion. Date of Evaluation: 06/07/24 Physical Therapist: HENNY Andrea Visit Plan Frequency: 2x /Week Duration: 2 Months Plan: 2X/ week for 6 weeks for postural exercises, scapular strength, RC strength with HEP HEP: green mid rows, orange IR/ER Subjective Subjective: Pt has had pain for several months. She has pain with raising her arm and lowering it back down. At times just walking and swinging her arms. Sometimes just using her mouse it hurts into her shoulder and fingers. She has always had neck pain. She has some numbness. Her arm goes numb sometimes a few times a month and that happens in both arms. She has had an x-ray and did not show anything. She just keeps moving her arm because she has things that she has to get done but pays for it. It is her R shoulder. She is R handed. She struggles with carrying her work bag. She will wake up at times with pain when laying on it. Meloxicam helps but does not take the pain away. 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 Goal Time Frame: 6-8 Weeks Goal 3:: Decrease pain of her R shoulder with activity Goal Time Frame: 6-8 Weeks Rehabilitation Potential Rehabilitation Potential: Good Anticipated Interventions Patient/Client Instruction: Educate patient on: Condition and Plan of Care For the Purpose of:: To decrease pain, To increase ROM, To improve nutrient delivery to tissue, To improve muscle performance and motor function, To improve ability to perform ADL's, To increase tolerance to activity/condition/position, To improve performance and independence with ADL's, To decrease level of super vision to perform tasks, To improve ability of physical actions for home/community/work/leisure, To improve health of tissue, To decrease soft tissue restriction and To increase flexibility/ROM Therapeutic Exercise to Include: Strength training, Endurance training, Body mechanics, Postural training, Flexibilty training, Passive ROM, Active ROM and Scapular Strength/Stabilization For the Purpose of:: To decrease pain, To increase ROM, To improve nutrient delivery to tissue, To improve muscle performance and motor function, To improve ability to perform ADL's, To increase tolerance to activity/condition/position, To improve performance and independence with ADL's, To decrease level of supervision to perform tasks, To improve ability of physical actions for home/community/work/leisure, To improve gait and locomotor functions, To improve health of tissue, To decrease soft tissue restriction and To increase flexibility/ROM Manual Therapy Techniques to Include: Passive ROM and Soft tissue mobilization For the Purpose of:: To decrease pain, To increase ROM, To improve nutrient delivery to tissue, To improve muscle performance and motor function, To improve ability to perform ADL's and To increase flexibility/ROM Text: Thank you for the opportunity to evaluate your patient. For Medicare and Medicare HMO plans, please review the plan of care and approve it. It will need to be FAXED BACK to us at [phone] for Medicare purposes. For Medicare only, by signing this I certify the plan of care. Please let me know if there are questions or concerns regarding this plan of care. Physician Signature: Date:
--- NOTE | 2024-07-13 11:27 | HP.PTDCSUM ---
Discharge Summary D/C summary: It has been my pleasure to treat TRACY CONTI referred by Dr. Lakeisha Carter MD, with the diagnosis of R shoulder lesion for a total of 10 visit(s). Discharge Date: 07/13/24 Please see the following information for a summary of their discharge status. Subjective Subjective: Pt was doing well but she went to reach for her bag yesterday and she heard a pop and not it hurts to reach her arm Forward. She has to reach each day to plug in her computer it hurts her shoulder. She is still having discomfort but it is not as bad as what it was. She is doing HEP. She is achy right now or shrugging her shoulder she feels the pain. She feels like her R shoulder is almost swollen and tighter and christian. Her fingers are not numb and not as much pain down the arm and still has discomfort. Pain R shoulder pain: Pain Intensity (Out of 10): 3 Neck, Upper Back: Pain Intensity (Out of 10): 0 Overall Improvement % Improvement: 50 Objective Objective/Function: UE MMT: R shoulder flex 5.8 and L 6.5 R shoulder ABD 4.8 and L 9 R shoulder ER 9.7 and L 9.7 R shoulder IR 9.6 and L 10.7 Goals Goal 1:: I HEP Goal Progress: Goal Met Goal 2:: Increase R shoulder strength (at the time of the eval: UE MMT: R shoulder flex 4.4 and L 6.5 R shoulder ABD 4.6 and L 9 R shoulder ER 8.7 and L 9.7 R shoulder IR 9.2 and L 10.7). Goal Progress: Progressing Goal 3:: Decrease pain of her R shoulder with activity Goal Progress: Progressing Plan Plan: DC PT back to as still having pain. She will continue with her strengthening at home in the mean time. She feels that her bands are still strong enough. D/C Information Discharge Comments: DC PT back to and HEP d/c sentence: If there are questions or concerns regarding this patient's physical therapy, please feel free to call me at [phone]. Thank you for the referral of this patient. Sincerely, Agueda Ward, MPT Balance/Gait/Functional tests Balance/Special Test Scores Quick DASH Score: 13.6350 Improvement % Improvement: 50
== END 2024-07-13 19:00 | disposition home or self-care (01) ==
LOC: PT 11:00
PROVIDERS: PCP Family Medicine; Referring Provider Family Medicine; Visit Provider Family Medicine
DX: M75.81 Other shoulder lesions, right shoulder (principal)
CPT/HCPCS: 97110; 97161; 97530

== ENCOUNTER → 2024-12-27 | Outpatient (CLI) | payer OTHER, SELFPAY ==
[2024-12-27 12:26] LABS: Absolute Lymphocyte Count 2.24 X10^3/uL (0.83-4.51); Absolute Neutrophil Count 4.1 X10^3/uL (2.0-7.7); Basophil# 0.04 X10^3/uL; Basophil% 0.6 % (0-1); Eosinophil# 0.13 X10^3/uL; Eosinophils% 1.8 % (0-5); Hematocrit 41.9 % (37-47); Hemoglobin 13.9 g/dL (12.0-15.0); Lymphocyte # 2.24 X10^3/ul (0.83-4.51); Lymphocyte % 31.4 % (19-41); Mean Corp Hgb Conc 33.2 g/dL (32-36); Mean Corpuscular Hgb 29.5 pg (27.0-32.0); Mean Platelet Vol. 10.5 fl (6.2-12.0); Monocyte# 0.62 X10^3/uL; Monocyte% 8.7 % (0-10); NRBC Flagged by Analyzer 0 % (0-5); Neutrophil # 4.09 X10^3/uL (2.7-7.7); Neutrophil % 57.4 % (47-70); Platelet Count 402 K/mm3 (150-450); RBC Distribution Width CV 13.1 % (11.6-14.6); RBC Distribution Width SD 42.8 fl (35.1-43.9); Red Blood Count 4.71 M/mm3 (4.2-5.4); White Blood Count 7.1 K/mm3 (4.4-11.0)
[2024-12-27 13:10] LABS: Anion Gap 12 (5-15); BUN 12 mg/dL (4-19); Calcium,Total 8.9 mg/dL (7.6-11.0); Carbon Dioxide 25.8 mmol/L (21.0-32.0); Chloride 100 mmol/L (98-108); Cholesterol 288 mg/dL (<=200); EST Glomerular Filtration Rate 79 (>60); Glucose 97 mg/dL (70-99); High Density Lipoprotein 60 mg/dL; Low Density Lipoprotein Calc. 206 mg/dL; Sodium Level 138 mmol/L (133-145); Triglycerides 110 mg/dL; Very Low Density Lipoprotein 22 mg/dL (5-40); Vitamin D,25 Hydroxy 25.5 ng/mL (30-100); cholesterol:hdl ratio screen 4.81
== END | disposition home or self-care (01) ==
PROVIDERS: PCP Family Medicine; Visit Provider Family Medicine
DX: Z00.00 Encounter for general adult medical examination without abnormal findings (principal); R23.3 Spontaneous ecchymoses; E55.9 Vitamin D deficiency, unspecified
CPT/HCPCS: 36415; 80048; 80061; 82306; 85025

== ENCOUNTER → 2025-01-25 | Outpatient (CLI) | payer OTHER, SELFPAY ==
--- NOTE | 2025-01-25 12:49 | RAD_ITS ---
PROCEDURE: KNEE 4 OR MORE VIEWS 01/25/2025 REASON FOR EXAM: KNEE PAIN TECHNIQUE: 4 view(s) of the right knee COMPARISON: Right knee study dated 02/01/2022 FINDINGS: No osseous destructive process is seen. There are no fractures or dislocations. Joint spaces are well preserved. There appears to be a small suprapatellar bursa effusion. There is mild soft tissue swelling noted. RAD/Knee 4 or More Views IMPRESSION: Mild soft tissue swelling right knee. Small suprapatellar bursa effusion. Reading Location: [id number]
== END | disposition home or self-care (01) ==
LOC: MTRAD 12:47
PROVIDERS: PCP Family Medicine; Referring Provider Family Medicine; Visit Provider Family Medicine
DX: M25.561 Pain in right knee (principal)
CPT/HCPCS: 73564

== ENCOUNTER → 2025-02-10 | Outpatient (CLI) | payer OTHER, SELFPAY ==
--- NOTE | 2025-02-10 07:52 | BI_ITS ---
EXAM: SCRN MAMM (CAD)W/VANESA BILAT 02/10/2025 CLINICAL HISTORY: F, Age 49 y/o , SCREENING TECHNIQUE: Bilateral screening digital breast tomosynthesis with 2D and 3D images. Computer aided detection. COMPARISON: Prior exam(s) dated 02/06/2023, 06/07/2021. FINDINGS: TISSUE DENSITY: The breast tissue is heterogenously dense, which may obscure small masses. The mammogram demonstrates that the patient has dense breasts. Supplemental screening with whole breast ultrasound or MRI may be considered for further evaluation. Bilateral Breast Mammographic Findings: No significant masses, calcifications or other abnormalities are identified. BI/SCRN MAMM (CAD)W/VANESA BILAT IMPRESSION: Right Breast: BIRADS 1 NEGATIVE. Left Breast: BIRADS 1 NEGATIVE. OVERALL FINAL ASSESSMENT: BIRADS 1 NEGATIVE. RECOMMENDATION: Routine annual follow-up in 1 Year A letter with findings and recommendations will be mailed to the patient. Reading Location: [id number]
== END | disposition home or self-care (01) ==
LOC: OPBI 07:50
PROVIDERS: PCP Family Medicine; Referring Provider Family Medicine; Visit Provider Family Medicine
DX: Z12.31 Encounter for screening mammogram for malignant neoplasm of breast (principal)
CPT/HCPCS: 77063; 77067

== ENCOUNTER → 2025-04-05 | Outpatient (CLI) | payer OTHER, SELFPAY ==
[2025-04-05 14:12] LABS: Hematocrit 42.4 % (37-47); Hemoglobin 14.0 g/dL (12.0-15.0); Immature Granulocytes Count 0.030 X10^3/uL (0.0-0.0); Mean Corp Hgb Conc 33.0 g/dL (32-36); Mean Corpuscular Volume 91.2 fL (81-99); Mean Platelet Vol. 10.5 fl (6.2-12.0); NRBC Flagged by Analyzer 0 % (0-5); Platelet Count 358 K/mm3 (150-450); RBC Distribution Width CV 13.3 % (11.6-14.6); RBC Distribution Width SD 44.7 fl (35.1-43.9); Red Blood Count 4.65 M/mm3 (4.2-5.4); White Blood Count 7.8 K/mm3 (4.4-11.0)
[2025-04-05 14:32] LABS: CRP < 3.00 mg/L (0.0-3.0); Uric Acid 4.3 mg/dL (2.6-6.0)
[2025-04-07 11:08] LABS: ANTINUCLEAR ANTIBODIES DIRECT Negative (Negative)
== END | disposition home or self-care (01) ==
LOC: BFHLAB 11:16
PROVIDERS: PCP Family Medicine
DX: M22.2X1 Patellofemoral disorders, right knee (principal); S83.8X1A Sprain of other specified parts of right knee, initial encounter; M25.561 Pain in right knee; M25.562 Pain in left knee; X58.XXXA Exposure to other specified factors, initial encounter
CPT/HCPCS: 36415; 84550; 85025; 85652; 86038; 86140; 86431; 86617

== ENCOUNTER → 2025-08-07 | Outpatient (CLI) | payer OTHER, SELFPAY ==
--- NOTE | 2025-08-07 09:00 | US_ITS ---
PROCEDURE: ABDOMEN LIMITED 08/07/2025 REASON FOR EXAM: RUQ ABDOMINAL PAIN TECHNIQUE: Procedure Code: USABDL Modality: US Procedure: ABDOMEN LIMITED COMPARISON: None FINDINGS: Liver: Mild hepatomegaly. The liver measures 18.1 cm. There is evidence of a 2 cm x 1.9 cm by 1.3 cm area of decreased echotexture in the midportion of the left lobe of the liver. Correlation with CT scan is recommended. Gallbladder: No stones sludge wall thickening or tenderness. Common bile duct: Normal measuring 3.1 mm . Pancreas: Normal Other: Visualized portions of the right kidney are unremarkable. No right upper quadrant ascites. US/Abdomen Limited IMPRESSION: Mild hepatomegaly. The liver measures 18.1 cm. 2 cm x 1.9 cm 1.3 cm hypoechoic nodular density in the left lobe of the liver a s described. Correlation with CT scan recommended. Reading Location: [place] [id number]
== END | disposition home or self-care (01) ==
PROVIDERS: PCP Family Medicine; Referring Provider Family Medicine; Visit Provider Family Medicine
DX: R10.11 Right upper quadrant pain (principal)
CPT/HCPCS: 76705

== ENCOUNTER → 2025-08-22 | Outpatient (CLI) | payer OTHER, SELFPAY ==
--- NOTE | 2025-08-22 14:31 | CT_ITS ---
PROCEDURE: ABDOMEN W/WO IV CONTRAST 08/22/2025 REASON FOR EXAM: AREA OF LIVER SEEN ON US TECHNIQUE: Procedure Code: CTABDWW Modality: CT Procedure: ABDOMEN W/WO IV CONTRAST Multiphasic imaging acquisition in the unenhanced, arterial, and venous phases. Multiplanar Sagittal and Coronal images were obtained. One or more dose reduction techniques were used (e.g., Automated exposure control, adjustment of the mA and/or kV according to patient size, use of iterative reconstruction technique. CONTRAST: Isovue 370 VOLUME: 89 mL RADIATION DOSE SUMMARY: CTDlvol: 10.27, 6.65, 10.18, 11.64 mGy DLP: 1018.36 mGycm COMPARISON: US Abdomen Limited, 08/07/2025 FINDINGS: LUNG BASES: No basilar airspace consolidation or pleural effusion. LIVER: Ill-defined 1.6 cm mildly enhancing focus in segment 3 during arterial phase, with no corresponding noncontrast or venous phase abnormality. GALLBLADDER: Unremarkable. No calcified stone. BILE DUCTS: No ductal dilation. PANCREAS: Unremarkable. SPLEEN: Unremarkable. ADRENAL GLANDS: Unremarkable. KIDNEYS: Left inferior pole calculus measuring 2.2 mm. The kidneys enhance symmetrically. Hyperdense 0.8 cm right renal lesion seen on precontrast imaging but not well visualized during the arterial and venous phases. Hypodense 0.5 cm right renal lesion, likely a cyst no hydronephrosis or hydroureter. STOMACH AND BOWEL: No obstruction or perforation. No wall thickening. No CT evidence of colitis or acute diverticulitis. APPENDIX: Normal-appearing appendix. No CT evidence for appendicitis. RETRO/PERITONEUM: No free fluid. No free air. LYMPH NODES: No lymphadenopathy. IMAGED PELVIC ORGANS: Unremarkable ovaries. Unremarkable imaged portions of the bladder and uterus. VASCULATURE: No aortic aneurysm. ABDOMINAL WALL AND SOFT TISSUES: Unremarkable. BONES: No fracture or suspicious osseous abnormality. Left L5 spondylolysis defect without spondylolisthesis. Benign osteitis condensans ilii is present. CT/Abdomen W/WO IV Contrast IMPRESSION: 1. Small indeterminate liver segment 3 lesion with isolated mild arterial hype renhancement. This could represent an adenoma, focal nodular hyperplasia or atypical hemangioma. Recommend liver MRI with hep atobiliary contrast for definitive characterization. 2. Nonobstructing left renal calculus. 3. Small indeterminate hyperdense right renal lesion, possibly a complex cyst. Reading Location: [id number]
== END | disposition home or self-care (01) ==
LOC: CT 14:11
PROVIDERS: PCP Family Medicine; Referring Provider Family Medicine; Visit Provider Family Medicine
DX: R93.2 Abnormal findings on diagnostic imaging of liver and biliary tract (principal)
CPT/HCPCS: 74170; Q9967

== ENCOUNTER → 2025-08-23 | Outpatient (CLI) | payer OTHER, SELFPAY ==
[2025-08-23 15:42] LABS: AST(SGOT) 15 U/L (<=31); Alanine Aminotransfer ALT/SGPT 15 U/L (<=34); Albumin, Serum 4.4 g/dL (3.5-5.0); Alkaline Phosphatase 43 U/L (35-104); Bilirubin, Direct 0.15 mg/dL (0.00-0.30); Cholesterol 208 mg/dL (<=200); Globulin 2.6 g/dL (2.2-4.2); Low Density Lipoprotein Calc. 127 mg/dL; Triglycerides 113 mg/dL; Very Low Density Lipoprotein 23 mg/dL (5-40); cholesterol:hdl ratio screen 3.42
== END | disposition home or self-care (01) ==
PROVIDERS: PCP Family Medicine; Referring Provider Family Medicine; Visit Provider Family Medicine
DX: E78.5 Hyperlipidemia, unspecified (principal)
CPT/HCPCS: 36415; 80061; 80076

== ENCOUNTER → 2025-08-29 | Outpatient (CLI) | payer OTHER, SELFPAY ==
--- NOTE | 2025-08-29 11:11 | MRI_ITS ---
PROCEDURE: MRI ABD WITH AND W/O CONTRAST 08/29/2025 REASON FOR EXAM: ABNORMAL FINDINGS ON DIAGNOSTIC IMAGING BENIGN NEOPLASM OF LIVER TECHNIQUE: Procedure Code: MRIABDWW Modality: MR Procedure: MRI ABD WITH AND W/O CONTRAST Multiplanar and multisequence images were obtained. 3D MRCP images were provided CONTRAST: Clariscan VOLUME: 15 mL COMPARISON: August 22, 2025 FINDINGS: Liver: Non cirrhotic. A lobular mass in the posterior segment right lobe liver is 2.1 x 1.5 cm. This favored to represent FNH; it is hyperenhancing on arterial phase and nearly close to background in the portal venous phase and fades to background on delayed. This is not sufficiently large to have a significant scar, but minimal linear foci may represent some scarring. Additionally, in the left lobe there appears to be a small shunt versus flash filling hemangioma. Favor small shunt. No fatty infiltration or iron deposition is seen. Biliary: Normal Pancreas: Normal Spleen: Normal Adrenals: Normal Kidneys: A 6 mm proteinaceous or hemorrhagic type cyst is seen at the right midpole. No collecting system dilation seen. No solid mass. Peritoneum / Retroperitoneum: No mass Lymph Nodes: No lymphadenopathy Major Vessels: Normal Bones: Normal MRI/MRI Abd WITH and W/O Contrast IMPRESSION: 1. 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 2. Hemorrhagic or proteinaceous type cyst right kidney. Bosniak 2. No follow -up required. Reading Location: [id number]
== END | disposition home or self-care (01) ==
PROVIDERS: PCP Family Medicine; Referring Provider Family Medicine; Visit Provider Family Medicine
DX: R93.89 Abnormal findings on diagnostic imaging of other specified body structures (principal); D13.4 Benign neoplasm of liver
CPT/HCPCS: 74183; A9575; A4216